=== PATIENT | male | born 1975 | race Caucasian/White ===

== ENCOUNTER 2018-11-05 07:45 | Inpatient (IN) | payer MEDICAID, OTHER ==
[~2018-11-05] VITALS: Ht 198.1 cm; Wt 109.9 kg
[~2018-11-05 07:45] MED LIST: AMLO5TAB4 PO; BENA20TA9 PO; INSU100V9 SUBCUT; LEVO250T2 PO; LIP10 PO; NPH,100V SUBCUT
[2018-11-05 07:52] VITALS: BP_SYST 132
--- NOTE | 2018-11-05 07:59 | NUR ---
Patient to ER bed 8 to gown for evaluation. Side rails up. Report given to Alice GARCIA.
--- NOTE | 2018-11-05 08:03 | NUR ---
Patient presented to ER with C/O dizziness and blurred vision. Patient A&Ox4, ambulatory to ER, arrived with , afebrile, denies pain, denies N/V/D. Patient states he woke-up this morning with dizziness, blurred vision when he tried ambulating to restroom. Patient states he feels unable to "get balanced" prompting ER visit. Patient states he has Dialysis M/W/F in [place], Hx of HTN, Diabetes, and hyperlipidemia. Patient states he is scheduled for MRI today with PMD office. Central line catheter for Dialysis to right chest: clean, dry & dressing intact.
--- NOTE | 2018-11-05 08:04 | NUR ---
ER Dr. Infnate at bedside examining patient.
--- NOTE | 2018-11-05 08:20 | NUR ---
# 20 gauge angiocath placed to Left AC. Use of asceptic technique. Opsite placed over site. Blood return noted. Blood for lab drawn from site. Flushed with 10 cc of normal saline. No evidence of infiltration noted. Patient tolerated well.
--- NOTE | 2018-11-05 08:30 | NUR ---
Radiology at bedside for portable x-ray.
[2018-11-05 08:34] LABS: BASOPHILS # (AUTO) 0.1 K/uL (0.0-0.2); BASOPHILS % (AUTO) 1.4 % (0.0-2.0); EOSINOPHILS # (AUTO) 0.5 K/uL (0.0-0.4); EOSINOPHILS % (AUTO) 6.2 % (0.0-4.0); HEMATOCRIT 31.2 % (36-54); HEMOGLOBIN 10.8 g/dL (14.0-18.0); LYMPHOCYTES % (AUTO) 27.4 % (20.5-51.5); MEAN CORPUSCULAR HEMOGLOBIN 32 pg (27-31); MEAN CORPUSCULAR HGB CONC 35 % (32-36); MEAN CORPUSCULAR VOLUME 91 fL (79.0-98.0); MONOCYTES # (AUTO) 0.6 K/uL (0.0-1.0); MONOCYTES % (AUTO) 8.9 % (1.7-9.3); NEUTROPHILS # (AUTO) 4.1 K/uL (1.8-7.7); NEUTROPHILS % (AUTO) 56.1 % (40.0-70.0); PLATELET COUNT (AUTO) 236 K/uL (130-430); RED BLOOD CELL COUNT(AUTO) 3.42 MIL/uL (4.2-6.2); RED CELL DISTRIBUTION WIDTH 13.2 % (9.0-15.0); WHITE BLOOD COUNT (AUTO) 7.3 K/uL (4.8-10.8)
[2018-11-05 08:50] LABS: CALCIUM 9.1 mg/dL (8.4-11.0); CREATININE 5.14 mg/dL (0.55-1.30); POTASSIUM 4.1 mmol/L (3.5-5.1)
[2018-11-05 08:54] LABS: INR 0.9 (0.80-1.20); PROTHROMBIN TIME 9.5 SECS (9.5-12.5)
[2018-11-05 08:55] LABS: ALBUMIN 3.2 g/dL (3.4-4.8); TOTAL BILIRUBIN 0.6 mg/dL (0.0-1.0)
--- NOTE | 2018-11-05 09:15 | NUR ---
Patient sitting in [place], at bedside. I obtained MRI Consent.
--- NOTE | 2018-11-05 10:46 | NUR ---
Patient to ER bed 8 from MRI via wheelchair.
[2018-11-05] MEDS ORDERED: ASPIRIN 81 MG TAB.CHEW PO ONE (11:00)
[2018-11-05 11:39] LABS: CHOLESTEROL 147 mg/dL (<200); HDL CHOLESTEROL 56 mg/dL (>45); LDL CHOLESTEROL 79 mg/dL (<100); TRIGLYCERIDES 51 mg/dL (30-150)
[2018-11-05] MEDS ORDERED: LIP80 PO (11:40)
[2018-11-05] MEDS ORDERED: INSU100I26 SQ (11:40)
[2018-11-05] MEDS ORDERED: NEPH PO (11:40)
[2018-11-05] MEDS ORDERED: NOR10 PO (11:40)
[2018-11-05] MEDS ORDERED: METO50TA16 PO (11:40)
--- NOTE | 2018-11-05 11:40 | NUR ---
Medication reconciliation completed with information provided by [facility] pharmacy. . Any prior medication reconciliation on file was reviewed and corrected.
[2018-11-05] MEDS ORDERED: GLUCOSE 15 GM GEL (in 37.5 GM TUBE) PO PRN (11:45)
[2018-11-05] MEDS ORDERED: D5W 1,000 ML IV PRN (11:45)
[2018-11-05] MEDS ORDERED: DEXTROSE 50%-WATER 50 ML DISP.SYRIN IVP PRN (11:45)
--- NOTE | 2018-11-05 11:45 | NUR ---
Patient will be admitted to care of Dr. James. Admitted to Tele unit. Will go to room 124A . Belongings list completed. Summary report printed. Report will be given at bedside. Transfer to Tele via ACLS protocol. Licensed nurse Bernice GARCIA & Yuliya GARCIA. IV present no signs or symptoms of infiltration.
--- NOTE | 2018-11-05 11:52 | NUR ---
ADMISSION NOTE Received patient from ER via gurney. Patient admitted with diagnosis of CVA and ESRD. Patient is awake, alert, oriented X4. Patient oriented to hospital room, call light, toileting, pain management and safety-teach back done. Personal belongings checked and Belongings List documented. Call light within reach.
[2018-11-05 12:00] VITALS: BP_SYST 159
--- NOTE | 2018-11-05 12:00 | NUR ---
RECEIVED REPORT FROM ER NURSE. PATIENT WALKED TO HIS BED UNASSISTED. BREATHING IS UNLABORED WITH SYMMETRICAL CHEST RISE AND FALL. IV SITE IS PATENT WITH NO SIGNS OF INFILTRATION AND SALINE LOCKED. NO COMPLAINTS OF PAIN. NO SIGNS AND SYMPTOMS OF DISTRESS. BED LOCKED IN LOWEST POSITION AND CALL LIGHT IN REACH. WILL CONTINUE TO MONITOR PATIENT FOR ANY CHANGES.
[2018-11-05] MEDS: INSULIN LISPRO SLIDING SCALE 100 UNITS/ML VIAL (humaLOG) SUBCUT PRN ×3 (12:04→22:03)
[2018-11-05 12:07] VITALS: BP_SYST 159
--- NOTE | 2018-11-05 12:13 | NUR ---
Nephro consult called: for Dr. Burger, regarding ESRD, ordered by Dr. James, spoke with Vilma. Nuero consult called: for Dr. Nath, regarding CVA, ordered by DR. James, spoke with Vilma.
--- NOTE | 2018-11-05 12:56 | NUR ---
MD CALL SPOKE WITH DR LOPEZ IN REGARDS TO PATIENT'S BLOOD PRESSURE, 159/101, 69, PT ASYMPTOMATIC, MD GAVE NEW ORDERS.
[2018-11-05] MEDS ORDERED: amLODIPine BESYLATE 10 MG TABLET PO ONE (13:00)
--- NOTE | 2018-11-05 14:00 | NUR ---
RN ROUNDS: PATIENT IS SLEEPING IN BED. BREATHING UNLABORED WITH SYMMETRICAL CHEST RISE AND FALL. IV SITE PATENT WITH NO SIGNS OF INFILTRATION AND SALINE LOCKED. NO SIGNS OR SYMPTOMS OF DISTRESS NOTED. BED LOCKED IN LOWEST POSITION WITH CALL LIGHT IN REACH. WILL CONTINUE TO MONITOR PATIENT FOR ANY CHANGES.
[2018-11-05] MEDS ORDERED: ATORVASTATIN 20 MG TABLET PO ONE (15:15)
[2018-11-05] MEDS ORDERED: METOPROLOL TARTRATE 50 MG TABLET PO ONE (15:15)
[2018-11-05] MEDS ORDERED: NEPHROVITE, (FOLIC ACID/VITAMIN B COMP W-C 1 TAB) PO ONE (15:15)
[2018-11-05 15:37] VITALS: BP_SYST 154
--- NOTE | 2018-11-05 15:56 | NUR ---
ROUNDS DR JOHN CRAWFORD, AWARE OF PATIENT'S CONDITION, AWARE THAT PT TOOK ALL HIS HOME MEDICATIONS THIS MORNING AND REFUSED THEM RIGHT NOW. Addendum: 11/05/18 at 1743 by Addie Redmond RN MD MADE AWARE OF PATIENT'S CURRENT BLOOD PRESSURE, NO NEED FOR ANY MEDICATION PER MD AT THIS TIME.
[2018-11-05] MEDS ORDERED: cloNIDine HCL 0.1 MG TABLET PO PRN (16:00)
[2018-11-05] MEDS ORDERED: ZOLPIDEM TARTRATE 5 MG TABLET PO PRN (16:00)
[2018-11-05] MEDS ORDERED: ACETAMINOPHEN 325 MG TABLET PO PRN (16:00)
--- NOTE | 2018-11-05 16:00 | NUR ---
RN ROUNDS: PATIENT IS SLEEPING IN BED. BREATHING IS UNLABORED AND SYMMETRICAL CHEST RISE AND FALL. NO SIGNS OR SYMPTOMS OF DISTRESS NOTED. IV SITE IS PATENT WITH NO SIGNS OF INFILTRATION. SAFETY PRECAUTIONS IN PLACE WITH BED LOCKED IN LOWEST POSITION AND CALL LIGHT IN REACH. WILL CONTINUE TO MONITOR PATIENT FOR ANY CHANGES.
--- NOTE | 2018-11-05 18:53 | NUR ---
CLOSING NOTES: PATIENT IS SLEEPING IN BED. BREATHING IS UNLABORED WITH SYMMETRICAL CHEST RISE AND FALL. NO SIGNS AND SYMPTOMS OF DISTRESS NOTED. IV SITE IS PATENT WITH NO SIGNS OF INFILTRATION. SAFETY PRECAUTIONS WERE MAINTAINED THROUGHOUT THE SHIFT. BED LOCKED IN LOWEST POSITION WITH CALL LIGHT IN REACH. WILL ENDORSE PATIENT TO ONCOMING SHIFT.
--- NOTE | 2018-11-05 19:57 | NUR ---
Pt is fully awake and alert. No c/o pain or discomfort and no acute distress noted. IV site in LAC is without any signs of infiltration. Skin is warm and dry to touch. No signs or symptoms of hypoglycemia or hyperglycemia noted. Fall and safety precautions are in place. Call light is with pt and bed is in the lowest and locked positions. Pt was instructed to call for assistance as needed and pt verbalized understanding.
[2018-11-05 20:00] VITALS: BP_SYST 140
[2018-11-05] MEDS ORDERED: INSULIN GLARGINE 100 UNITS/ML 10 ML VIAL SUBCUT SCH (21:00)
[2018-11-05] MEDS: METOPROLOL TARTRATE 50 MG TABLET PO SCH (21:58)
--- NOTE | 2018-11-05 22:03 | NUR ---
Accucheck 262 and skin remains warm and dry to touch. Lantus Insulin 12 units and Humalog Insulin 6 units were given SQ. Pt was offered HAS snacks, bu pt declined. Pt was given 1/2 turkey sandwich, 1 cup cranberry juice and 1 cup apple juice per pt's request to be kept at his bedside in case he needs them later. Pt was instructed to call for assistance as needed and pt verbalized understanding.
--- NOTE | 2018-11-06 00:30 | NUR ---
Pt is sleeping without any distress noted. Saline lock is intact in his LAC. Fall and safety precautions are in place.
[2018-11-06 01:23] VITALS: BP_SYST 131
--- NOTE | 2018-11-06 02:30 | NUR ---
Pt is sleeping comfortably in bed. Fall and safety precautions are in place.
--- NOTE | 2018-11-06 04:00 | NUR ---
Pt is resting quietly in bed. No acute distress noted. Fall and safety precautions are in place.
[2018-11-06 05:49] LABS: BASOPHILS # (AUTO) 0.1 K/uL (0.0-0.2); BASOPHILS % (AUTO) 1.3 % (0.0-2.0); EOSINOPHILS # (AUTO) 0.6 K/uL (0.0-0.4); EOSINOPHILS % (AUTO) 8.8 % (0.0-4.0); HEMATOCRIT 30.5 % (36-54); HEMOGLOBIN 10.6 g/dL (14.0-18.0); LYMPHOCYTES # (AUTO) 2.4 K/uL (1.0-5.5); LYMPHOCYTES % (AUTO) 34.4 % (20.5-51.5); MEAN CORPUSCULAR HEMOGLOBIN 32 pg (27-31); MEAN CORPUSCULAR HGB CONC 35 % (32-36); MEAN CORPUSCULAR VOLUME 92 fL (79.0-98.0); MONOCYTES # (AUTO) 0.8 K/uL (0.0-1.0); MONOCYTES % (AUTO) 10.8 % (1.7-9.3); NEUTROPHILS # (AUTO) 3.2 K/uL (1.8-7.7); NEUTROPHILS % (AUTO) 44.7 % (40.0-70.0); PLATELET COUNT (AUTO) 220 K/uL (130-430); RED BLOOD CELL COUNT(AUTO) 3.32 MIL/uL (4.2-6.2); RED CELL DISTRIBUTION WIDTH 13.5 % (9.0-15.0); WHITE BLOOD COUNT (AUTO) 7.1 K/uL (4.8-10.8)
--- NOTE | 2018-11-06 06:36 | NUR ---
Pt is awake and resting comfortably in bed. Call light is with pt and bed is in the lowest and locked positions. All pt's needs were attended to. Accucheck 150 this AM and no Insulin coverage needed. Skin remains warm and dry to touch. Will endorse to day shift nurse.
[2018-11-06 07:12] LABS: CALCIUM 9.2 mg/dL (8.4-11.0); CREATININE 5.48 mg/dL (0.55-1.30); THYROID STIMULATING HORMONE 1.3 uIu/mL (0.34-4.82); TOTAL BILIRUBIN 0.5 mg/dL (0.0-1.0)
--- NOTE | 2018-11-06 07:29 | NUR ---
Stroke educational materials given to pt.
--- NOTE | 2018-11-06 07:30 | NUR ---
Opening Note: Patient in bed resting. No signs of pain or discomfort. Breathing is even and unlabored with no distress noted. IV patent and intact. Safety precautions in place; bed in lowest position, wheels locked, side rails x3, bed alarm activated and call light within reach. No needs at this time. Will continue to monitor.
[2018-11-06] MEDS ORDERED: ASPIRIN 81 MG TABLET(ECOTRIN) PO SCH (09:00)
[2018-11-06] MEDS ORDERED: ATORVASTATIN 20 MG TABLET PO SCH (09:00)
[2018-11-06] MEDS ORDERED: FAMOTIDINE 20 MG TABLET PO SCH (09:00)
[2018-11-06] MEDS ORDERED: NEPHROVITE, (FOLIC ACID/VITAMIN B COMP W-C 1 TAB) PO SCH (09:00)
[2018-11-06] MEDS ORDERED: amLODIPine BESYLATE 10 MG TABLET PO SCH (09:00)
[2018-11-06 09:06] VITALS: BP_SYST 159
[2018-11-06] MEDS: METOPROLOL TARTRATE 50 MG TABLET PO SCH (09:10)
[2018-11-06] MEDS: INSULIN LISPRO SLIDING SCALE 100 UNITS/ML VIAL (humaLOG) SUBCUT PRN (11:45)
--- NOTE | 2018-11-06 11:46 | NUR ---
Accucheck: Blood sugar 213, covered with 4 units Humalog per sliding scale, see eMAR.
--- NOTE | 2018-11-06 13:23 | NUR ---
Dr. Burger at bedside: Dr. Burger, no dialysis order. Patient to have dialysis tomorrow morning in dialysis center at 0515. Will inform Dr. James.
--- NOTE | 2018-11-06 13:25 | NUR ---
Spoke to Dr. James: Spoke to Dr. James, orders received regarding discharge.
[2018-11-06 13:39] VITALS: BP_SYST 172
--- NOTE | 2018-11-06 13:47 | NUR ---
Elevated BP: Blood pressure elevated 172/91. PRN Catapres given, will reassess before discharge.
[2018-11-06 13:53] VITALS: BP_SYST 139
[2018-11-06 14:49] VITALS: BP_SYST 139
--- NOTE | 2018-11-06 14:49 | NUR ---
BP reassessment: Blood pressure 139/76.
--- NOTE | 2018-11-14 16:07 | NUR ---
DC follow up call: [employer] contacted Pt. at for post discharge follow up call. Pt. stated that he was feels " good" , he saw his PCP yesterday and he had no concerns.Pt has continued with dialysis 3x a week and reported no further episodes of dizziness. Pt. has medications at home at no new prescription was given at time of discharge. Pt. had no further questions or concerns at this time.
== END 2018-11-06 15:50 | disposition home or self-care (01) | DRG 45 ==
LOC: SED 07:45 → STU 11:16
PROVIDERS: ADMIT Internal Medicine; ATTEND Internal Medicine
DX: I63.9 Cerebral infarction, unspecified (principal); E11.22 Type 2 diabetes mellitus with diabetic chronic kidney disease; E11.42 Type 2 diabetes mellitus with diabetic polyneuropathy; I12.0 Hypertensive chronic kidney disease with stage 5 chronic kidney disease or end stage renal disease; E78.00 Pure hypercholesterolemia, unspecified; E78.5 Hyperlipidemia, unspecified; N18.6 End stage renal disease; Z99.2 Dependence on renal dialysis; Z82.3 Family history of stroke; Z79.4 Long term (current) use of insulin; Z86.73 Personal history of transient ischemic attack (TIA), and cerebral infarction without residual deficits
CPT/HCPCS: 36415; 70450-TC; 70551; 71045; 80053; 80061; 82962; 84443-TC; 84484; 85025; 85610-TC; 85730-TC; 87081; 93005; 99291; G0378; J1815

== ENCOUNTER 2019-01-09 22:51 | Emergency (ER) | payer MEDICAID ==
[~2019-01-09] VITALS: Ht 198.1 cm; Wt 119.7 kg
[~2019-01-09 22:51] MED LIST changes: -AMLO5TAB4 PO; -BENA20TA9 PO; +INSU100I26 SQ; -INSU100V9 SUBCUT; -LEVO250T2 PO; -LIP10 PO; +LIP80 PO; +METO50TA16 PO; +NEPH PO; +NOR10 PO; -NPH,100V SUBCUT
[2019-01-09 22:55] VITALS: BP_SYST 131
--- NOTE | 2019-01-09 23:20 | NUR ---
Patient to ER bed 1 to gown for evaluation. Side rails up. Report given to Lexy GACRIA.
--- NOTE | 2019-01-09 23:30 | NUR ---
JAYA Mckeon at bedside examining patient.
[2019-01-09] MEDS ORDERED: IBUPROFEN 800 MG TABLET PO ONE (23:45)
--- NOTE | 2019-01-09 23:47 | NUR ---
RT FOOT XRAY PERFORMED AT THE BEDSIDE.PT TOERATED WELL.
[2019-01-10] MEDS ORDERED: traMADol HCL HCL 50 MG TABLET (ULTRAM) PO ONE (00:15)
--- NOTE | 2019-01-10 00:55 | NUR ---
Pt still c/o severe rt foot pain,notified Dr Pérez.Awaiting for new order.
[2019-01-10] MEDS ORDERED: MORPHINE 4 MG/ML INJ. SYRINGE IM ONE (01:00)
[2019-01-10 01:51] VITALS: BP_SYST 131
--- NOTE | 2019-01-10 01:51 | NUR ---
Patient given written and verbal discharge instructions and verbalizes understanding. ER MD Dr. Pérez discussed with patient the results and treatment provided. Patient in stable condition. ID arm band removed. Rx of tramadol and ibuprofen given. Patient educated on pain management and to follow up with PMD. Pain Scale 2/10, tolerable for pt. Pt able to ambulate with steady gait. Opportunity for questions provided and answered. Medication side effect fact sheet provided.
== END 2019-01-10 01:51 | disposition home or self-care (01) ==
LOC: SED 22:51
DX: M13.871 Other specified arthritis, right ankle and foot (principal); E11.9 Type 2 diabetes mellitus without complications; I10 Essential (primary) hypertension; Z86.73 Personal history of transient ischemic attack (TIA), and cerebral infarction without residual deficits; Z79.899 Other long term (current) drug therapy
CPT/HCPCS: 36415; 73630; 84550; 96372; 99284; J2270

== ENCOUNTER 2019-12-30 22:22 | Observation (INO) | payer MEDICAID, SELFPAY ==
[~2019-12-30] VITALS: Ht 198.1 cm; Wt 109.5 kg
[2019-12-30 22:22] VITALS: BP_SYST 155
[~2019-12-30 22:22] MED LIST changes: +ATEN-41 PO; -METO50TA16 PO; -NEPH PO
[2019-12-30 23:20] LABS: EOSINOPHILS # (AUTO) 0.3 K/uL (0.0-0.4); EOSINOPHILS % (AUTO) 5.9 % (0.0-4.0); HEMATOCRIT 28.5 % (36-54); LYMPHOCYTES # (AUTO) 1.1 K/uL (1.0-5.5); LYMPHOCYTES % (AUTO) 22.6 % (20.5-51.5); MEAN CORPUSCULAR HEMOGLOBIN 32 pg (27-31); MEAN CORPUSCULAR HGB CONC 35 % (32-36); MEAN CORPUSCULAR VOLUME 92 fL (79.0-98.0); MONOCYTES # (AUTO) 0.3 K/uL (0.0-1.0); NEUTROPHILS # (AUTO) 3.1 K/uL (1.8-7.7); NEUTROPHILS % (AUTO) 63.5 % (40.0-70.0); PLATELET COUNT (AUTO) 250 K/uL (130-430); RED CELL DISTRIBUTION WIDTH 13.9 % (9.0-15.0); WHITE BLOOD COUNT (AUTO) 4.9 K/uL (4.8-10.8)
[2019-12-30 23:24] LABS: CALCIUM 7.8 mg/dL (8.4-11.0); POTASSIUM 3.8 mmol/L (3.5-5.1)
[2019-12-30 23:30] LABS: ALBUMIN 3.6 g/dL (3.4-4.8); TOTAL BILIRUBIN 0.6 mg/dL (0.0-1.0)
[2019-12-30] MEDS ORDERED: NITROGLYCERIN 1 INCH (GM) OINT. TP ONE (23:30)
[2019-12-30] MEDS ORDERED: MORPHINE 4 MG/ML INJ. SYRINGE IVP ONE (23:30)
[2019-12-30 23:33] LABS: CREATININE 10.24 mg/dL (0.55-1.30)
[2019-12-31 00:28] VITALS: BP_SYST 194
[2019-12-31] MEDS ORDERED: MORPHINE 2 MG/ML INJ. SYRINGE IVP PRN ×2 (00:45→07:45)
[2019-12-31] MEDS ORDERED: ONDANSETRON HCL 4 MG/2 ML VIAL IVP PRN ×2 (00:45→07:45)
[2019-12-31] MEDS ORDERED: amLODIPine BESYLATE 10 MG TABLET PO ONE (00:45)
[2019-12-31 07:04] LABS: BASOPHILS # (AUTO) 0.1 K/uL (0.0-0.2); BASOPHILS % (AUTO) 1.2 % (0.0-2.0); EOSINOPHILS # (AUTO) 0.5 K/uL (0.0-0.4); EOSINOPHILS % (AUTO) 8.2 % (0.0-4.0); HEMATOCRIT 27.7 % (36-54); HEMOGLOBIN 9.6 g/dL (14.0-18.0); LYMPHOCYTES # (AUTO) 1.4 K/uL (1.0-5.5); LYMPHOCYTES % (AUTO) 25.2 % (20.5-51.5); MEAN CORPUSCULAR HEMOGLOBIN 32 pg (27-31); MEAN CORPUSCULAR HGB CONC 35 % (32-36); MEAN CORPUSCULAR VOLUME 92 fL (79.0-98.0); MONOCYTES # (AUTO) 0.5 K/uL (0.0-1.0); MONOCYTES % (AUTO) 9.3 % (1.7-9.3); NEUTROPHILS # (AUTO) 3.2 K/uL (1.8-7.7); NEUTROPHILS % (AUTO) 56.1 % (40.0-70.0); PLATELET COUNT (AUTO) 225 K/uL (130-430); RED BLOOD CELL COUNT(AUTO) 3.01 MIL/uL (4.2-6.2); RED CELL DISTRIBUTION WIDTH 14.2 % (9.0-15.0); WHITE BLOOD COUNT (AUTO) 5.7 K/uL (4.8-10.8)
[2019-12-31 07:39] LABS: CALCIUM 7.8 mg/dL (8.4-11.0); POTASSIUM 3.8 mmol/L (3.5-5.1)
[2019-12-31] MEDS ORDERED: ACETAMINOPHEN 325 MG TABLET PO PRN (07:45)
[2019-12-31] MEDS ORDERED: POTASSIUM CHLORIDE 20 MEQ TAB.PRT.SR PO PRN (07:45)
[2019-12-31] MEDS ORDERED: MAGNESIUM SULFATE 50 ML IV PRN (07:45)
[2019-12-31] MEDS ORDERED: DOCUSATE SODIUM 100 MG CAPSULE PO PRN (07:45)
[2019-12-31] MEDS ORDERED: ZOLPIDEM TARTRATE 5 MG TABLET PO PRN (07:45)
[2019-12-31] MEDS ORDERED: MUPIROCIN 2% TOPICAL OINTMENT 22 GM NS PRN (07:45)
[2019-12-31] MEDS ORDERED: LORazepam 2 MG/ML VIAL IVP PRN (07:45)
[2019-12-31 08:00] VITALS: BP_SYST 182
[2019-12-31] MEDS ORDERED: cloNIDine HCL 0.2 MG TABLET PO PRN (08:00)
[2019-12-31 08:23] LABS: CREATININE 10.65 mg/dL (0.55-1.30)
[2019-12-31] MEDS: LORATADINE 10 MG TABLET PO SCH (08:44)
[2019-12-31] MEDS ORDERED: cloNIDine HCL 0.2 MG TABLET ONE (09:00)
[2019-12-31] MEDS ORDERED: amLODIPine BESYLATE 10 MG TABLET PO SCH (09:00)
[2019-12-31] MEDS ORDERED: ATENOLOL 25 MG TABLET(TENORMIN) PO SCH (09:00)
[2019-12-31 10:25] VITALS: BP_SYST 183
[2019-12-31] MEDS: ATORVASTATIN 20 MG TABLET PO SCH (10:39)
[2019-12-31] MEDS: amLODIPine BESYLATE 10 MG TABLET PO SCH (10:45)
[2019-12-31] MEDS: FLUTICASONE PROPIONATE 50 mCg/SPRAY 16 GM NS SCH ×2 (10:45→21:52)
[2019-12-31] MEDS: HEPARIN SODIUM,PORCINE 5,000 UNITS/ML VIAL SUBCUT SCH ×2 (10:46→21:50)
[2019-12-31] MEDS: INSULIN REGULAR, HUMAN 100 UNITS/ML, 10 ML VIAL (humuLIN R) SUBCUT PRN ×3 (10:58→21:49)
[2019-12-31] MEDS ORDERED: CLOPIDOGREL BISULFATE 75 MG TABLET PO ONE (11:15)
[2019-12-31 12:00] VITALS: BP_SYST 171
[2019-12-31 16:54] VITALS: BP_SYST 150
[2019-12-31 19:32] VITALS: BP_SYST 152
[2020-01-01 00:05] VITALS: BP_SYST 149
[2020-01-01 06:45] LABS: BASOPHILS # (AUTO) 0.1 K/uL (0.0-0.2); BASOPHILS % (AUTO) 1.2 % (0.0-2.0); EOSINOPHILS # (AUTO) 0.4 K/uL (0.0-0.4); EOSINOPHILS % (AUTO) 8.9 % (0.0-4.0); HEMATOCRIT 27.1 % (36-54); HEMOGLOBIN 9.4 g/dL (14.0-18.0); LYMPHOCYTES % (AUTO) 19.1 % (20.5-51.5); MEAN CORPUSCULAR HEMOGLOBIN 32 pg (27-31); MEAN CORPUSCULAR HGB CONC 35 % (32-36); MEAN CORPUSCULAR VOLUME 91 fL (79.0-98.0); MONOCYTES # (AUTO) 0.6 K/uL (0.0-1.0); MONOCYTES % (AUTO) 11.8 % (1.7-9.3); NEUTROPHILS # (AUTO) 2.9 K/uL (1.8-7.7); PLATELET COUNT (AUTO) 213 K/uL (130-430); RED BLOOD CELL COUNT(AUTO) 2.97 MIL/uL (4.2-6.2); RED CELL DISTRIBUTION WIDTH 14.4 % (9.0-15.0)
[2020-01-01 07:08] LABS: CALCIUM 7.9 mg/dL (8.4-11.0); POTASSIUM 3.3 mmol/L (3.5-5.1)
[2020-01-01 07:35] LABS: CREATININE 8.08 mg/dL (0.55-1.30)
[2020-01-01 08:00] VITALS: BP_SYST 152
[2020-01-01] MEDS ORDERED: CLOP75TA32 PO (08:07)
[2020-01-01] MEDS ORDERED: ASPI-1393 PO (08:07)
[2020-01-01] MEDS: ATORVASTATIN 20 MG TABLET PO SCH (08:39)
[2020-01-01] MEDS: LORATADINE 10 MG TABLET PO SCH (08:39)
[2020-01-01] MEDS: amLODIPine BESYLATE 10 MG TABLET PO SCH (08:40)
[2020-01-01] MEDS: HEPARIN SODIUM,PORCINE 5,000 UNITS/ML VIAL SUBCUT SCH (08:41)
[2020-01-01] MEDS ORDERED: ATENOLOL 25 MG TABLET(TENORMIN) PO SCH (09:00)
[2020-01-01] MEDS ORDERED: CLOTRIMAZOLE 1% TOPICAL CREAM 15 GM TP SCH (09:00)
[2020-01-01] MEDS ORDERED: CLOPIDOGREL BISULFATE 75 MG TABLET PO SCH (09:00)
[2020-01-01] MEDS: FLUTICASONE PROPIONATE 50 mCg/SPRAY 16 GM NS SCH (10:05)
[2020-01-01 11:03] VITALS: BP_SYST 152
[2020-01-01] MEDS: INSULIN REGULAR, HUMAN 100 UNITS/ML, 10 ML VIAL (humuLIN R) SUBCUT PRN (11:35)
[2020-01-01 12:16] VITALS: BP_SYST 157
== END 2020-01-01 14:45 | disposition home or self-care (01) ==
LOC: SED 22:22 → STU 23:40
PROVIDERS: ADMIT General Practice; ATTEND General Practice
DX: R07.89 Other chest pain (principal); Z20.828 Contact with and (suspected) exposure to other viral communicable diseases; N17.0 Acute kidney failure with tubular necrosis; E87.1 Hypo-osmolality and hyponatremia; I25.119 Atherosclerotic heart disease of native coronary artery with unspecified angina pectoris; I21.4 Non-ST elevation (NSTEMI) myocardial infarction; I13.2 Hypertensive heart and chronic kidney disease with heart failure and with stage 5 chronic kidney disease, or end stage renal disease; E11.22 Type 2 diabetes mellitus with diabetic chronic kidney disease; I50.42 Chronic combined systolic (congestive) and diastolic (congestive) heart failure; N18.6 End stage renal disease; Z99.2 Dependence on renal dialysis; D63.1 Anemia in chronic kidney disease; R79.89 Other specified abnormal findings of blood chemistry; I25.2 Old myocardial infarction; E11.40 Type 2 diabetes mellitus with diabetic neuropathy, unspecified; E11.21 Type 2 diabetes mellitus with diabetic nephropathy; E78.5 Hyperlipidemia, unspecified; E66.9 Obesity, unspecified; Z79.899 Other long term (current) drug therapy
CPT/HCPCS: 36415 ×3; 71045; 80048 ×2; 80053; 82962 ×2; 83036; 83735; 83880; 84484 ×3; 85025 ×3; 85379; 87081; 87426; 93005; 93970; 96372 ×2; 96374; 96375; 99291; G0378; J1644 ×2; J2270; J2405; J7030; 90935

== ENCOUNTER 2020-05-10 19:48 | Emergency (ER) | payer MEDICAID, SELFPAY ==
[~2020-05-10] VITALS: Ht 198.1 cm; Wt 113.4 kg
[~2020-05-10 19:48] MED LIST changes: +ASPI-1393 PO; +CLOP75TA32 PO
[2020-05-10 20:05] VITALS: BP_SYST 149
[2020-05-10] MEDS ORDERED: ONDANSETRON HCL 4 MG/2 ML VIAL IVP ONE (21:00)
[2020-05-10] MEDS ORDERED: NACL 0.9% 1,000 ML IV ONE (21:00)
[2020-05-10 21:28] LABS: BASOPHILS # (AUTO) 0.1 K/uL (0.0-0.2); BASOPHILS % (AUTO) 1.2 % (0.0-2.0); EOSINOPHILS # (AUTO) 0.3 K/uL (0.0-0.4); EOSINOPHILS % (AUTO) 4.8 % (0.0-4.0); HEMATOCRIT 29.3 % (36-54); HEMOGLOBIN 9.9 g/dL (14.0-18.0); LYMPHOCYTES # (AUTO) 1.2 K/uL (1.0-5.5); LYMPHOCYTES % (AUTO) 19.1 % (20.5-51.5); MEAN CORPUSCULAR HEMOGLOBIN 31 pg (27-31); MEAN CORPUSCULAR HGB CONC 34 % (32-36); MEAN CORPUSCULAR VOLUME 93 fL (79.0-98.0); MONOCYTES # (AUTO) 0.6 K/uL (0.0-1.0); MONOCYTES % (AUTO) 9.7 % (1.7-9.3); NEUTROPHILS # (AUTO) 3.9 K/uL (1.8-7.7); NEUTROPHILS % (AUTO) 65.2 % (40.0-70.0); PLATELET COUNT (AUTO) 212 K/uL (130-430); RED BLOOD CELL COUNT(AUTO) 3.16 MIL/uL (4.2-6.2); RED CELL DISTRIBUTION WIDTH 14.5 % (9.0-15.0)
[2020-05-10 22:07] LABS: CALCIUM 8.4 mg/dL (8.4-11.0); POTASSIUM 4.4 mmol/L (3.5-5.1)
[2020-05-10 22:17] LABS: ALBUMIN 3.8 g/dL (3.4-4.8); TOTAL BILIRUBIN 0.7 mg/dL (0.0-1.0)
[2020-05-10 22:23] LABS: CREATININE 10.44 mg/dL (0.55-1.30)
[2020-05-10 23:13] VITALS: BP_SYST 168
== END 2020-05-10 23:13 | disposition home or self-care (01) ==
LOC: SED 19:48
DX: I12.0 Hypertensive chronic kidney disease with stage 5 chronic kidney disease or end stage renal disease (principal); E11.22 Type 2 diabetes mellitus with diabetic chronic kidney disease; N18.6 End stage renal disease; E78.5 Hyperlipidemia, unspecified; R11.2 Nausea with vomiting, unspecified; Z79.4 Long term (current) use of insulin; Z79.899 Other long term (current) drug therapy; Z79.82 Long term (current) use of aspirin
CPT/HCPCS: 36415; 80053; 83605; 83690; 84484; 85025; 87040; 93005; 96361; 96374; 99284; J2405; J7030

== ENCOUNTER 2020-08-03 23:58 | Inpatient (IN) | payer MEDICAID, SELFPAY ==
[~2020-08-03] VITALS: Ht 198.1 cm; Wt 115.8 kg
[2020-08-03 23:58] VITALS: BP_SYST 200
[2020-08-04 00:48] LABS: BASOPHILS % (AUTO) 0.5 % (0.0-2.0); EOSINOPHILS # (AUTO) 0.1 K/uL (0.0-0.4); EOSINOPHILS % (AUTO) 2.1 % (0.0-4.0); HEMATOCRIT 35.6 % (36-54); HEMOGLOBIN 11.9 g/dL (14.0-18.0); LYMPHOCYTES # (AUTO) 0.9 K/uL (1.0-5.5); LYMPHOCYTES % (AUTO) 17.1 % (20.5-51.5); MEAN CORPUSCULAR HEMOGLOBIN 32 pg (27-31); MEAN CORPUSCULAR HGB CONC 34 % (32-36); MEAN CORPUSCULAR VOLUME 94 fL (79.0-98.0); MONOCYTES # (AUTO) 0.3 K/uL (0.0-1.0); MONOCYTES % (AUTO) 6.2 % (1.7-9.3); NEUTROPHILS # (AUTO) 3.8 K/uL (1.8-7.7); NEUTROPHILS % (AUTO) 74.1 % (40.0-70.0); PLATELET COUNT (AUTO) 169 K/uL (130-430); RED BLOOD CELL COUNT(AUTO) 3.79 MIL/uL (4.2-6.2); RED CELL DISTRIBUTION WIDTH 13.8 % (9.0-15.0); WHITE BLOOD COUNT (AUTO) 5.1 K/uL (4.8-10.8)
[2020-08-04 00:51] LABS: CALCIUM 8.8 mg/dL (8.4-11.0); POTASSIUM 4.9 mmol/L (3.5-5.1)
[2020-08-04 00:56] LABS: TOTAL BILIRUBIN 0.8 mg/dL (0.0-1.0)
[2020-08-04 00:58] LABS: CREATININE 13.41 mg/dL (0.55-1.30)
[2020-08-04] MEDS ORDERED: hydrALAZINE HCL 20 MG/ML VIAL IVP ONE ×2 (01:45→02:45)
[2020-08-04] MEDS ORDERED: METOCLOPRAMIDE HCL 10 MG/2 ML VIAL IVP ONE (01:45)
[2020-08-04] MEDS ORDERED: NITROGLYCERIN 1 INCH (GM) OINT. TP ONE ×2 (02:00→03:45)
[2020-08-04] MEDS ORDERED: MORPHINE 4 MG INJ. 4 MG/ML VIAL IVP ONE (02:00)
[2020-08-04] MEDS ORDERED: DIPHENHYDRAMINE INJ 50 MG/ML VIAL ONE (02:19)
[2020-08-04] MEDS ORDERED: DIPHENHYDRAMINE INJ 50 MG/ML VIAL IVP ONE (02:30)
[2020-08-04] MEDS ORDERED: NITROGLYCERIN 1 INCH (GM) OINT. ONE (02:55)
[2020-08-04] MEDS ORDERED: FUROSEMIDE 40 MG/4 ML VIAL IVP ONE (03:45)
[2020-08-04] MEDS ORDERED: SSREG SUBCUT (04:02)
[2020-08-04] MEDS ORDERED: TOPXL100 PO (04:02)
[2020-08-04] MEDS ORDERED: HYDR100T25 PO (04:02)
[2020-08-04] MEDS ORDERED: LABETALOL 100 MG/ 20ML VIAL IVP ONE (04:30)
[2020-08-04 05:56] VITALS: BP_SYST 163
[2020-08-04] MEDS ORDERED: LORazepam 2 MG/ML VIAL IVP PRN (06:30)
[2020-08-04] MEDS ORDERED: HYDROcodone/ACETAMIN 5-325 MG TAB (NORCO/ VICODIN) PO PRN (06:30)
[2020-08-04] MEDS ORDERED: ONDANSETRON HCL 4 MG/2 ML VIAL IVP PRN (06:30)
[2020-08-04] MEDS ORDERED: NALOXONE HCL 0.4 MG/ML AMP (NARCAN) IVP PRN ×2 (06:30)
[2020-08-04] MEDS ORDERED: NACL 0.9% 1,000 ML IV SCH (06:30)
[2020-08-04] MEDS ORDERED: HYDROcodone/ACETAMIN 10-325 MG TAB PO PRN (06:30)
[2020-08-04] MEDS ORDERED: ACETAMINOPHEN 325 MG TABLET PO PRN (06:30)
[2020-08-04 07:28] LABS: BASOPHILS # (AUTO) 0.1 K/uL (0.0-0.2); BASOPHILS % (AUTO) 1.8 % (0.0-2.0); EOSINOPHILS # (AUTO) 0.2 K/uL (0.0-0.4); EOSINOPHILS % (AUTO) 4.5 % (0.0-4.0); HEMATOCRIT 32.6 % (36-54); LYMPHOCYTES # (AUTO) 1.4 K/uL (1.0-5.5); LYMPHOCYTES % (AUTO) 28.5 % (20.5-51.5); MEAN CORPUSCULAR HEMOGLOBIN 32 pg (27-31); MEAN CORPUSCULAR HGB CONC 34 % (32-36); MEAN CORPUSCULAR VOLUME 93 fL (79.0-98.0); MONOCYTES # (AUTO) 0.4 K/uL (0.0-1.0); MONOCYTES % (AUTO) 7.2 % (1.7-9.3); NEUTROPHILS # (AUTO) 2.9 K/uL (1.8-7.7); PLATELET COUNT (AUTO) 160 K/uL (130-430); RED BLOOD CELL COUNT(AUTO) 3.49 MIL/uL (4.2-6.2); RED CELL DISTRIBUTION WIDTH 14.1 % (9.0-15.0)
[2020-08-04 07:45] VITALS: BP_SYST 146
[2020-08-04 07:55] LABS: CALCIUM 8.2 mg/dL (8.4-11.0); POTASSIUM 4.4 mmol/L (3.5-5.1)
[2020-08-04] MEDS: METOPROLOL SUCCINATE 50 MG TAB.SR.24H (TOPROL XL) PO SCH ×2 (08:04→20:53)
[2020-08-04] MEDS: hydrALAZINE HCL 25 MG TABLET PO SCH ×3 (08:05→20:52)
[2020-08-04 08:56] LABS: CREATININE 13.88 mg/dL (0.55-1.30)
[2020-08-04 08:57] LABS: PHOSPHORUS 9.7 mg/dL (2.7-4.5)
[2020-08-04 11:31] VITALS: BP_SYST 171
[2020-08-04 15:19] VITALS: BP_SYST 158
[2020-08-04 19:00] VITALS: BP_SYST 180
[2020-08-04 20:00] VITALS: BP_SYST 180
[2020-08-04] MEDS: ATORVASTATIN 20 MG TABLET PO SCH (20:52)
[2020-08-05] VITALS: BP_SYST 177
[2020-08-05] MEDS ORDERED: cloNIDine HCL 0.1 MG TABLET PO ONE (00:15)
[2020-08-05 01:45] VITALS: BP_SYST 162
[2020-08-05 06:42] LABS: BASOPHILS # (AUTO) 0.1 K/uL (0.0-0.2); BASOPHILS % (AUTO) 1.2 % (0.0-2.0); EOSINOPHILS # (AUTO) 0.4 K/uL (0.0-0.4); HEMATOCRIT 33.6 % (36-54); HEMOGLOBIN 11.3 g/dL (14.0-18.0); LYMPHOCYTES # (AUTO) 1.4 K/uL (1.0-5.5); LYMPHOCYTES % (AUTO) 27.6 % (20.5-51.5); MEAN CORPUSCULAR HEMOGLOBIN 32 pg (27-31); MEAN CORPUSCULAR HGB CONC 34 % (32-36); MEAN CORPUSCULAR VOLUME 94 fL (79.0-98.0); MONOCYTES # (AUTO) 0.6 K/uL (0.0-1.0); MONOCYTES % (AUTO) 12.9 % (1.7-9.3); NEUTROPHILS # (AUTO) 2.5 K/uL (1.8-7.7); NEUTROPHILS % (AUTO) 50.3 % (40.0-70.0); PLATELET COUNT (AUTO) 150 K/uL (130-430); RED BLOOD CELL COUNT(AUTO) 3.58 MIL/uL (4.2-6.2)
[2020-08-05 08:00] VITALS: BP_SYST 181
[2020-08-05] MEDS: cloNIDine HCL 0.1 MG TABLET PO SCH ×2 (08:45→20:24)
[2020-08-05 08:46] LABS: PHOSPHORUS 7.6 mg/dL (2.7-4.5); POTASSIUM 4.3 mmol/L (3.5-5.1)
[2020-08-05] MEDS: METOPROLOL SUCCINATE 50 MG TAB.SR.24H (TOPROL XL) PO SCH ×2 (08:46→20:25)
[2020-08-05 09:26] LABS: CREATININE 10.53 mg/dL (0.55-1.30)
[2020-08-05] MEDS: hydrALAZINE HCL 25 MG TABLET PO SCH ×3 (10:20→20:24)
[2020-08-05] MEDS ORDERED: ENALAPRILAT DIHYDRATE 1.25 MG/ML VIAL IVP PRN (11:00)
[2020-08-05] MEDS ORDERED: amLODIPine BESYLATE 10 MG TABLET PO ONE (12:00)
[2020-08-05 12:01] VITALS: BP_SYST 159; BP_SYST 94
[2020-08-05 17:01] VITALS: BP_SYST 146
[2020-08-05] MEDS ORDERED: DEXTROSE 50%-WATER 50 ML DISP.SYRIN IVP PRN (17:15)
[2020-08-05] MEDS ORDERED: GLUCOSE (DEXTROSE) ORAL GEL -Adults PO PRN (17:15)
[2020-08-05] MEDS ORDERED: D5W 1,000 ML IV PRN (17:15)
[2020-08-05] MEDS: INSULIN REGULAR, HUMAN 100 UNITS/ML, 10 ML VIAL (humuLIN R) SUBCUT PRN ×2 (17:56→20:33)
[2020-08-05 18:07] VITALS: BP_SYST 154
[2020-08-05] MEDS: ATORVASTATIN 20 MG TABLET PO SCH (20:25)
[2020-08-06] VITALS (8 sets, daily range): BP systolic 146–179
[2020-08-06 05:48] LABS: BASOPHILS # (AUTO) 0.1 K/uL (0.0-0.2); BASOPHILS % (AUTO) 1.1 % (0.0-2.0); EOSINOPHILS # (AUTO) 0.6 K/uL (0.0-0.4); EOSINOPHILS % (AUTO) 10.9 % (0.0-4.0); HEMATOCRIT 35.5 % (36-54); HEMOGLOBIN 11.9 g/dL (14.0-18.0); LYMPHOCYTES # (AUTO) 1.4 K/uL (1.0-5.5); LYMPHOCYTES % (AUTO) 23.7 % (20.5-51.5); MEAN CORPUSCULAR HEMOGLOBIN 32 pg (27-31); MEAN CORPUSCULAR HGB CONC 34 % (32-36); MEAN CORPUSCULAR VOLUME 94 fL (79.0-98.0); MONOCYTES # (AUTO) 0.6 K/uL (0.0-1.0); NEUTROPHILS # (AUTO) 3.1 K/uL (1.8-7.7); NEUTROPHILS % (AUTO) 53.3 % (40.0-70.0); PLATELET COUNT (AUTO) 159 K/uL (130-430); RED BLOOD CELL COUNT(AUTO) 3.78 MIL/uL (4.2-6.2); WHITE BLOOD COUNT (AUTO) 5.7 K/uL (4.8-10.8)
[2020-08-06 06:11] LABS: ALBUMIN 3.7 g/dL (3.4-4.8); CALCIUM 8.4 mg/dL (8.4-11.0); PHOSPHORUS 8.7 mg/dL (2.7-4.5); POTASSIUM 4.4 mmol/L (3.5-5.1); TOTAL BILIRUBIN 0.6 mg/dL (0.0-1.0)
[2020-08-06 06:20] LABS: CREATININE 11.85 mg/dL (0.55-1.30)
[2020-08-06] MEDS: hydrALAZINE HCL 25 MG TABLET PO SCH ×3 (09:00→20:58)
[2020-08-06] MEDS: cloNIDine HCL 0.1 MG TABLET PO SCH ×2 (09:00→20:58)
[2020-08-06] MEDS: METOPROLOL SUCCINATE 50 MG TAB.SR.24H (TOPROL XL) PO SCH ×2 (09:00→20:59)
[2020-08-06] MEDS: amLODIPine BESYLATE 10 MG TABLET PO SCH (09:00)
[2020-08-06] MEDS ORDERED: FLUTICASONE PROPIONATE 50 mCg/SPRAY 16 GM NS SCH ×2 (14:30→21:00)
[2020-08-06] MEDS ORDERED: FLUTICASONE PROPIONATE 50 mCg/SPRAY 16 GM NS ONE (14:30)
[2020-08-06] MEDS: INSULIN REGULAR, HUMAN 100 UNITS/ML, 10 ML VIAL (humuLIN R) SUBCUT PRN (18:50)
[2020-08-06] MEDS: FLUTICASONE PROPIONATE 50 mCg/SPRAY 16 GM NS SCH (20:58)
[2020-08-06] MEDS: ATORVASTATIN 20 MG TABLET PO SCH (20:59)
[2020-08-07 00:40] VITALS: BP_SYST 122
[2020-08-07 08:20] VITALS: BP_SYST 156
[2020-08-07] MEDS: hydrALAZINE HCL 25 MG TABLET PO SCH ×3 (08:53→22:15)
[2020-08-07] MEDS: cloNIDine HCL 0.1 MG TABLET PO SCH ×3 (08:54→22:17)
[2020-08-07] MEDS: METOPROLOL SUCCINATE 50 MG TAB.SR.24H (TOPROL XL) PO SCH ×2 (08:54→22:16)
[2020-08-07] MEDS: FLUTICASONE PROPIONATE 50 mCg/SPRAY 16 GM NS SCH ×2 (08:55→22:13)
[2020-08-07] MEDS: amLODIPine BESYLATE 10 MG TABLET PO SCH (09:43)
[2020-08-07] MEDS: INSULIN REGULAR, HUMAN 100 UNITS/ML, 10 ML VIAL (humuLIN R) SUBCUT PRN ×3 (11:29→22:19)
[2020-08-07 14:23] VITALS: BP_SYST 115
[2020-08-07 18:44] VITALS: BP_SYST 140
[2020-08-07 21:00] VITALS: BP_SYST 144
[2020-08-07] MEDS: ATORVASTATIN 20 MG TABLET PO SCH (22:15)
[2020-08-08 01:00] VITALS: BP_SYST 138
[2020-08-08 03:39] VITALS: BP_SYST 139
[2020-08-08 06:15] LABS: BASOPHILS % (AUTO) 1.1 % (0.0-2.0); EOSINOPHILS # (AUTO) 0.4 K/uL (0.0-0.4); EOSINOPHILS % (AUTO) 10.2 % (0.0-4.0); HEMATOCRIT 34.4 % (36-54); HEMOGLOBIN 11.6 g/dL (14.0-18.0); LYMPHOCYTES # (AUTO) 1.4 K/uL (1.0-5.5); LYMPHOCYTES % (AUTO) 34.5 % (20.5-51.5); MEAN CORPUSCULAR HEMOGLOBIN 31 pg (27-31); MEAN CORPUSCULAR HGB CONC 34 % (32-36); MEAN CORPUSCULAR VOLUME 93 fL (79.0-98.0); MONOCYTES # (AUTO) 0.5 K/uL (0.0-1.0); MONOCYTES % (AUTO) 11.2 % (1.7-9.3); NEUTROPHILS # (AUTO) 1.8 K/uL (1.8-7.7); PLATELET COUNT (AUTO) 154 K/uL (130-430); RED CELL DISTRIBUTION WIDTH 13.7 % (9.0-15.0); WHITE BLOOD COUNT (AUTO) 4.2 K/uL (4.8-10.8)
[2020-08-08 08:00] VITALS: BP_SYST 143
[2020-08-08] MEDS: METOPROLOL SUCCINATE 50 MG TAB.SR.24H (TOPROL XL) PO SCH (08:15)
[2020-08-08] MEDS: hydrALAZINE HCL 25 MG TABLET PO SCH (08:15)
[2020-08-08] MEDS: cloNIDine HCL 0.1 MG TABLET PO SCH (08:16)
[2020-08-08] MEDS: amLODIPine BESYLATE 10 MG TABLET PO SCH (08:16)
[2020-08-08] MEDS: FLUTICASONE PROPIONATE 50 mCg/SPRAY 16 GM NS SCH (08:19)
[2020-08-08 08:47] LABS: CALCIUM 8.5 mg/dL (8.4-11.0); PHOSPHORUS 7.9 mg/dL (2.7-4.5); POTASSIUM 4.1 mmol/L (3.5-5.1)
[2020-08-08 08:59] LABS: CREATININE 10.52 mg/dL (0.55-1.30)
[2020-08-08] MEDS ORDERED: CLON0.1T PO (11:37)
[2020-08-08] MEDS ORDERED: NOR10 PO (11:37)
[2020-08-08] MEDS ORDERED: LIP20 PO (11:37)
[2020-08-08 12:00] VITALS: BP_SYST 143
[2020-08-08 13:09] VITALS: BP_SYST 143
[2020-08-08] MEDS: INSULIN REGULAR, HUMAN 100 UNITS/ML, 10 ML VIAL (humuLIN R) SUBCUT PRN (13:44)
[2020-08-16] MEDS ORDERED: METO-442 PO (14:54)
== END 2020-08-08 14:35 | disposition home or self-care (01) | DRG 199 ==
LOC: SED 23:58 → UNDOADMOB 08-04 04:27 → STU 08-04 04:27 → OBSVTOIN 08-05 19:08 → STU 08-07 13:24
PROVIDERS: ADMIT Preventive Medicine Preventive Medicine/Occupational Environmental Medicine; ATTEND Preventive Medicine Preventive Medicine/Occupational Environmental Medicine
PROC: 5A1D70Z Performance of Urinary Filtration, Intermittent, Less than 6 Hours Per Day (ICD-10-PCS; principal; 2020-08-04)
PROC: 5A1D70Z Performance of Urinary Filtration, Intermittent, Less than 6 Hours Per Day (ICD-10-PCS; 2020-08-06)
DX: I16.0 Hypertensive urgency (principal); N17.9 Acute kidney failure, unspecified; E11.22 Type 2 diabetes mellitus with diabetic chronic kidney disease; E11.65 Type 2 diabetes mellitus with hyperglycemia; I13.2 Hypertensive heart and chronic kidney disease with heart failure and with stage 5 chronic kidney disease, or end stage renal disease; I50.9 Heart failure, unspecified; N18.6 End stage renal disease; E87.1 Hypo-osmolality and hyponatremia; I25.10 Atherosclerotic heart disease of native coronary artery without angina pectoris; E83.51 Hypocalcemia; E83.41 Hypermagnesemia; E83.39 Other disorders of phosphorus metabolism; Z20.822 Contact with and (suspected) exposure to COVID-19; D63.8 Anemia in other chronic diseases classified elsewhere; E78.5 Hyperlipidemia, unspecified; Z99.2 Dependence on renal dialysis; Z79.899 Other long term (current) drug therapy; Z86.73 Personal history of transient ischemic attack (TIA), and cerebral infarction without residual deficits; Z79.4 Long term (current) use of insulin
CPT/HCPCS: 36415; 71045; 80048; 80053; 82962; 83690; 83735; 84100; 84443; 85025; 87081; 90935; 90937; 93005; 93306; 96374; 96375; 96376; 99285; G0378; J0360; J1200; J1815; J1940; J2270; J2765; J3490; J7030